=== PATIENT | male | born 1955 | race Caucasian/White ===

== ENCOUNTER 2016-10-01 16:20 | Emergency (ER) | payer SELFPAY ==
[2016-10-01] MEDS ORDERED: NACL 0.9% 1000 ML 1,000 ML IV ONE (17:53)
--- NOTE | 2016-10-01 18:30 | Emergency Department Report ---
ED Alcohol HPI - General Chief Complaint: Alcohol Stated Complaint: ETOH Time Seen by Provider: 10/01/16 17:24 Source: patient, EMS Mode of arrival: Stretcher Limitations: No Limitations - History of Present Illness Initial Comments: 61 male with history of EtOH abuse presenting to the emergency department brought in for a alcohol intoxication. Patient states he was [place] when EMS brought him in for Public Intoxication. Patient denies any complaints. Patient denies: Fever/chills, chest pain, double pain, nausea/vomiting/diarrhea. Patient admits he had "a little beer to drink". MD Complaint: alcohol intoxication Last Drink: just [employer] Recent Trauma: No Associated Symptoms: denies other symptoms. denies: nausea, vomiting, syncope, diaphoresis, tremors, abdominal pain, hematemesis, depression, suicidality Treatments Prior to Arrival: none - Related Data Allergies Allergy/AdvReac Type Severity Reaction Status Date / Time No Known Allergies Allergy Unverified 10/01/16 16:38 ED Review of Systems ROS: Stated complaint: ETOH Other details as noted in HPI Constitutional: denies: chills, fever Eyes: denies: eye pain, eye discharge, vision change ENT: denies: ear pain, throat pain Respiratory: denies: cough, shortness of breath, wheezing Cardiovascular: denies: chest pain, palpitations Endocrine: no symptoms reported Gastrointestinal: denies: abdominal pain, nausea, diarrhea Genitourinary: denies: urgency, dysuria Musculoskeletal: denies: back pain, joint swelling, arthralgia Skin: denies: rash, lesions Neurological: denies: headache, weakness, paresthesias Psychiatric: denies: anxiety, depression Hematological/Lymphatic: denies: easy bleeding, easy bruising ED Past Medical Hx - Past Medical History Previous Medical History?: No - Surgical History Past Surgical History?: No - Social History Smoking Status: Heavy Tobacco Smoker Substance Use Type: Alcohol ED Physical Exam - General Limitations: No Limitations General appearance: alert, in no apparent distress - Head Head exam: Present: atraumatic, normocephalic - Eye Eye exam: Present: normal appearance - ENT ENT exam: Present: mucous membranes moist - Neck Neck exam: Present: normal inspection - Respiratory Respiratory exam: Present: normal lung sounds bilaterally. Absent: respiratory distress - Cardiovascular Cardiovascular Exam: Present: regular rate, normal rhythm. Absent: systolic murmur, diastolic murmur, rubs, gallop - GI/Abdominal GI/Abdominal exam: Present: soft, normal bowel sounds - Rectal Rectal exam: Present: deferred - Extremities Exam Extremities exam: Present: normal inspection - Back Exam Back exam: Present: normal inspection - Neurological Exam Neurological exam: Present: alert, oriented X3, abnormal gait (pt gait unsteady ) - Psychiatric Psychiatric exam: Present: normal affect, normal mood - Skin Skin exam: Present: warm, other (pt has excorated lesions on skin from scratching, no evidence of cellulitis ). Absent: rash ED Course Vital Signs 10/01/16 10/01/16 10/01/16 17:43 19:00 20:00 Temperature 96.7 F L Pulse Rate 82 89 87 Respiratory 18 18 18 Rate Blood Pressure 128/80 101/66 104/67 [Left] O2 Sat by Pulse 98 99 99 Oximetry 10/01/16 21:00 Temperature Pulse Rate 82 Respiratory 18 Rate Blood Pressure 119/76 [Left] O2 Sat by Pulse 99 Oximetry - Reevaluation(s) Reevaluation #1: 10/01/16 18:42 pt resting comfortably Reevaluation #2: 10/01/16 19:56 Patient clinically sober and stable for discharge home. ED Medical Decision Making - Medical Decision Making 61 yo male brought into ED for public intoxication, pt is clinically sober, AAOX4, steady gait, and agrees he is stable to discharge home. Critical Care Time: No Critical care attestation.: If time is entered above; I have spent that time in minutes in the direct care of this critically ill patient, excluding procedure time. ED Disposition Clinical Impression: Alcohol abuse Disposition: DC-01 TO HOME OR SELFCARE Is pt being admited?: No Does the pt Need Aspirin: No Condition: Stable Referrals: PRIMARY CARE, [Primary Care Provider] - 24 Hours (og ) ROSALINA LA MD, PHD [Staff Physician] - 3-5 Days Time of Disposition: 19:59
[2016-10-01 21:57] VITALS: BP 119/76
== END 2016-10-01 21:45 | disposition home or self-care (01) ==
LOC: ED 16:20
DX: F10.10 Alcohol abuse, uncomplicated (principal); F17.210 Nicotine dependence, cigarettes, uncomplicated
CPT/HCPCS: 96360